=== PATIENT | male | born 1955 | race Caucasian/White ===

== ENCOUNTER 2018-08-04 11:53 | Outpatient (CLI) | payer MEDICARE | END 2018-08-04 11:54 | disposition home or self-care (01) | LOC: BICULT 11:53 | PROVIDERS: ATTEND Family Medicine | DX: R42 Dizziness and giddiness (principal); R47.01 Aphasia; E78.5 Hyperlipidemia, unspecified | CPT/HCPCS: 93880 ==

== ENCOUNTER 2020-01-28 12:33 | Outpatient (CLI) | payer MEDICARE ==
--- NOTE | 2020-01-28 13:03 | ULT ---
BILATERAL CAROTID DUPLEX ULTRASOUND: HISTORY: Stroke TECHNIQUE: Grayscale, color-flow and spectral Doppler ultrasound imaging of the extracranial carotid artery syst ems and vertebral arteries was performed bilaterally. FINDINGS: No large amount of echogenic plaque is seen involving the common carotid or internal carotid arteries . The peak systolic velocity in the right ICA measures 69.5 cm/s. The peak systolic velocity in the ri ght CCA measures 85.1 cm/s. The peak systolic velocity in the left ICA measures 65.9 cm/s. The peak systolic velocity in the l eft CCA measures 79.2 cm/s. The right IC/CC ration is0.82. The left IC/CC ratio is 0.82. Vertebral flow: antegrade, bilaterally. . IMPRESSION: No sonographic evidence of hemodynamically significant stenosis in either cervical caroti d artery.
== END 2020-01-28 12:34 | disposition home or self-care (01) ==
LOC: BICULT 12:33
PROVIDERS: ATTEND Family Medicine
DX: R47.01 Aphasia (principal)
CPT/HCPCS: 93880

== ENCOUNTER 2020-04-08 04:57 | Outpatient (CLI) | payer MEDICARE ==
[2020-04-08 17:14] LABS: SARS-CoV-2 MS2 Positive; SARS-CoV-2 N Gene Negative; SARS-CoV-2 S Gene Negative; SARS-CoV-2 orf1ab Negative
== END 2020-04-08 04:58 | disposition home or self-care (01) ==
LOC: ERS 04:57
PROVIDERS: ATTEND Family Medicine
DX: Z11.59 Encounter for screening for other viral diseases (principal)
CPT/HCPCS: 87635; U0003

== ENCOUNTER 2020-04-11 19:00 | Outpatient (CLI) | payer MEDICARE | END 2020-04-11 19:01 | disposition home or self-care (01) | LOC: SLEEPLAB 19:00 | PROVIDERS: ATTEND Family Medicine | DX: G47.33 Obstructive sleep apnea (adult) (pediatric) (principal); R06.83 Snoring; E66.9 Obesity, unspecified; I10 Essential (primary) hypertension; G31.84 Mild cognitive impairment of uncertain or unknown etiology | CPT/HCPCS: 95810 ==